=== PATIENT | female | born 1975 | race Two or more races ===

== ENCOUNTER 2019-12-17 23:11 | Emergency (ER) | payer MEDICAID ==
[~2019-12-17] VITALS: Ht 157.5 cm; Wt 95.0 kg
[2019-12-17] MEDS ORDERED: ondansetron 4mg rapidly disintigrating tab PO ONE (23:20)
[2019-12-17] MEDS ORDERED: ondansetron/PF 4mg/2ml inj IV ONE (23:25)
[2019-12-17] MEDS ORDERED: normal saline 1000ML IV soln IVB ONE ×2 (23:25→23:45)
[2019-12-17 23:43] LABS: BASOPHILS # (AUTO) 0.1 X10'3 (0-0.2); BASOPHILS % (AUTO) 0.6 % (0-1); EOSINOPHILS % (AUTO) 0.2 % (0-6); HEMOGLOBIN 15.6 g/dl (12.0-16.0); LYMPHOCYTES # (AUTO) 2.4 X10'3 (1.1-4.8); LYMPHOCYTES % (AUTO) 17.2 % (21-51); MEAN CORPUSCULAR HEMOGLOBIN 30.8 PG (27.0-31.0); MEAN CORPUSCULAR HGB CONC 33.9 g/dL (33.0-36.5); MEAN PLATELET VOLUME 7.9 FL (7.4-10.4); MONOCYTES # (AUTO) 0.8 X10'3 (0-0.9); MONOCYTES % (AUTO) 5.9 % (2-12); NEUTROPHILS # (AUTO) 10.5 X10'3 (1.8-7.7); NEUTROPHILS % (AUTO) 76.1 % (42-75); PLATELET COUNT 367 X10'3 (140-440); RED BLOOD COUNT 5.05 X10'6 (4.20-5.60); RED CELL DISTRIBUTION WIDTH 12.8 % (11.5-14.5); WHITE BLOOD COUNT 13.8 X10'3 (4.5-11.0)
[2019-12-17 23:51] LABS: ALANINE AMINOTRANSFERASE 16 U/L (12-78); ALBUMIN 3.7 G/DL (3.4-5.0); ALBUMIN/GLOBULIN RATIO 0.9 (1.1-1.5); ALKALINE PHOSPHATASE 92 IU/L (46-116); ANION GAP 18 (8-16); ASPARTATE AMINO TRANSFERASE 10 U/L (10-37); BILIRUBIN,TOTAL 0.3 MG/DL (0.1-1.0); BLOOD UREA NITROGEN 10 MG/DL (7-18); BUN/CREATININE RATIO 6.7 (6.6-38.0); CALCIUM 9.3 MG/DL (8.5-10.1); CHLORIDE 100 MMOL/L (99-107); ETHANOL 0.118 GM/DL (0.0-0.010); POTASSIUM 3.6 MMOL/L (3.5-5.1); SODIUM 136 MMOL/L (135-145); TOTAL CARBON DIOXIDE 17.6 MMOL/L (24-32); TOTAL PROTEIN 7.8 G/DL (6.4-8.2); eGFR 38 ML/MIN
[2019-12-17 23:54] LABS: GLUCOSE 463 MG/DL (70-104)
[2019-12-18] MEDS ORDERED: insulin regular, human 10 units/0.1 ml syringe SQ ONE
[2019-12-18] MEDS ORDERED: insulin regular, human U-100 3ml vial - multi-dose SQ ONE
[2019-12-18] MEDS ORDERED: insulin regular, human 10 units/0.1 ml syringe IV ONE (00:35)
[2019-12-18 00:47] VITALS: BP 101/61
[2019-12-18] MEDS ORDERED: normal saline 1000ml 1,000 ML IV ONE (00:50)
== END 2019-12-18 00:50 ==
LOC: ER 23:12
DX: E13.65 Other specified diabetes mellitus with hyperglycemia (principal); F10.129 Alcohol abuse with intoxication, unspecified; R11.2 Nausea with vomiting, unspecified; Z72.89 Other problems related to lifestyle; V87.7XXA Person injured in collision between other specified motor vehicles (traffic), initial encounter; Y93.89 Activity, other specified; Y92.89 Other specified places as the place of occurrence of the external cause; Y99.8 Other external cause status; Y90.0 Blood alcohol level of less than 20 mg/100 ml
CPT/HCPCS: 36415; 80053; 80320; 82948; 85025; 96361; 96372; 96374; 96375; 99284; J1815; J2405; J7030